=== PATIENT | female | born 1935 | race Caucasian/White ===

== ENCOUNTER → 2016-10-12 | Outpatient (CLI) | payer MEDICARE, OTHER ==
[~2016-10-12] VITALS: Ht 154.9 cm; Wt 66.0 kg
[~2016-10-12] MED LIST: ACAI PO; ACTONEL150 MG PO; ASPIRIN E.C. 8181 MG PO; B-12 100 MCG PO; CITRACAL + D 311 TAB PO; CORAL CALCIUM1 POW; CRANBERRY1 CAP PO; EPA FISH OIL1000 MG PO; ESTRACE0.1 MG/GM VG; LORAZEPAM0.5 MG PO; MANGOSTEEN PO; MAREPA1200 MG PO; MAXZIDE 25 MG-31 TAB PO; MULTIPLE VITAMI1 CAP PO; NORVASC5 MG PO; OCEAN NASAL SPR45 ML NS; OXYGEN; OXYGEN NS; PAXIL CR 12.512.5 MG PO; PERCOCET 325 MG1 TA2 PO; PRENATAL1 TA1 PO; SYNTHROID0.025 MG PO; THEO-DUR 1100 MG/TAB PO; THEO-DUR 3300 MG/TAB PO; TYLENOL 500MG500 MG PO; VENTOLIN0.09 MG IH; VITAMIN B-12100 MCG SL; VITAMIN D32000 I1 SL; VITAMIN D5000 IU PO; [UNRECOGNIZED DRUG - CODE] PO; [UNRECOGNIZED DRUG - OTHER] PO
[2016-10-12 09:34] VITALS: BP 148/80; PULSE 72
[2016-10-12 09:56] VITALS: BP 148/80; PULSE 72
== END ==
LOC: LIGHT 09:30
DX: I10 Essential (primary) hypertension (principal); R73.01 Impaired fasting glucose; E66.3 Overweight; Z68.27 Body mass index [BMI] 27.0-27.9, adult; E03.8 Other specified hypothyroidism

== ENCOUNTER → 2016-12-21 | Outpatient (CLI) | payer MEDICARE, OTHER ==
[~2016-12-21] VITALS: Ht 154.9 cm; Wt 64.9 kg
[2016-12-21 09:12] VITALS: BP 140/76; PULSE 88
== END ==
LOC: LIGHT 09:10
DX: I10 Essential (primary) hypertension (principal); R73.01 Impaired fasting glucose; E66.3 Overweight; Z68.27 Body mass index [BMI] 27.0-27.9, adult; E03.8 Other specified hypothyroidism; Z90.49 Acquired absence of other specified parts of digestive tract; Z85.820 Personal history of malignant melanoma of skin; Z90.710 Acquired absence of both cervix and uterus

== ENCOUNTER → 2017-02-22 | Outpatient (CLI) | payer MEDICARE, OTHER ==
[~2017-02-22] VITALS: Ht 154.9 cm; Wt 63.7 kg
[2017-02-22 09:38] VITALS: BP 130/60; PULSE 80
== END ==
LOC: LIGHT 11:00
DX: I10 Essential (primary) hypertension (principal); R73.01 Impaired fasting glucose; E66.3 Overweight; Z68.26 Body mass index [BMI] 26.0-26.9, adult; Z71.3 Dietary counseling and surveillance; E03.9 Hypothyroidism, unspecified

== ENCOUNTER 2017-05-03 10:54 | Outpatient (CLI) | payer MEDICARE, OTHER ==
[~2017-05-03] VITALS: Ht 154.9 cm; Wt 61.3 kg
[2017-05-03 11:12] VITALS: BP 134/84; PULSE 103; TEMP 97.9
== END 2017-05-03 11:53 | disposition home or self-care (01) ==
LOC: EUO 10:54
DX: M81.0 Age-related osteoporosis without current pathological fracture (principal); Z79.899 Other long term (current) drug therapy
CPT/HCPCS: J3489

== ENCOUNTER → 2017-06-14 | Outpatient (CLI) | payer MEDICARE, OTHER ==
[~2017-06-14] VITALS: Ht 155.1 cm; Wt 61.7 kg
[2017-06-14 09:13] VITALS: BP 130/70; PULSE 68
== END ==
LOC: LIGHT 09:09
DX: I10 Essential (primary) hypertension (principal); R73.01 Impaired fasting glucose; E66.3 Overweight; Z68.25 Body mass index [BMI] 25.0-25.9, adult; Z71.3 Dietary counseling and surveillance; E03.9 Hypothyroidism, unspecified

== ENCOUNTER → 2017-07-12 | Outpatient (CLI) | payer MEDICARE, OTHER | LOC: MC.RAD 13:09 | DX: Z12.31 Encounter for screening mammogram for malignant neoplasm of breast (principal) ==

== ENCOUNTER → 2017-08-02 | Outpatient (CLI) | payer MEDICARE, OTHER ==
[~2017-08-02] VITALS: Ht 155.1 cm; Wt 61.0 kg
[2017-08-02 09:33] VITALS: BP 140/70; PULSE 76
== END ==
LOC: LIGHT 09:08
DX: I10 Essential (primary) hypertension (principal); R73.01 Impaired fasting glucose; E66.3 Overweight; Z68.25 Body mass index [BMI] 25.0-25.9, adult; Z71.3 Dietary counseling and surveillance; E03.9 Hypothyroidism, unspecified

== ENCOUNTER → 2017-10-25 | Outpatient (CLI) | payer MEDICARE, OTHER ==
[~2017-10-25] VITALS: Ht 155.1 cm; Wt 60.6 kg
[~2017-10-25] MED LIST changes: +FISH OIL 1000MG1 CAP PO
[2017-10-25 14:23] VITALS: BP 140/76; PULSE 80
== END ==
LOC: LIGHT 11:30
DX: I10 Essential (primary) hypertension (principal); R73.01 Impaired fasting glucose; E66.3 Overweight; Z68.25 Body mass index [BMI] 25.0-25.9, adult; Z71.3 Dietary counseling and surveillance; E03.9 Hypothyroidism, unspecified
CPT/HCPCS: G0463

== ENCOUNTER → 2017-12-27 | Outpatient (CLI) | payer MEDICARE, OTHER ==
[~2017-12-27] VITALS: Ht 154.9 cm; Wt 61.5 kg
[2017-12-27 09:41] VITALS: BP 124/60; PULSE 88
== END ==
LOC: LIGHT 09:35
DX: I10 Essential (primary) hypertension (principal); R73.01 Impaired fasting glucose; E66.3 Overweight; Z68.25 Body mass index [BMI] 25.0-25.9, adult; Z71.3 Dietary counseling and surveillance; E03.9 Hypothyroidism, unspecified
CPT/HCPCS: G0463

== ENCOUNTER → 2018-01-22 | Outpatient (CLI) | payer MEDICARE ==
[~2018-01-22] VITALS: Ht 154.9 cm; Wt 65.6 kg
[~2018-01-22] MED LIST changes: +CRANBERRY500 M3 PO; +DULCOLAX TAB5 MG PO; +PRILOSEC 20MG20 MG PO; +TYLENOL 8 HR PO
[2018-01-22 09:47] VITALS: BP 157/85; PULSE 97
[2018-01-22 11:25] VITALS: BP 145/78; PULSE 87
[2018-01-22 12:07] LABS: GLUCOSE,PLEURAL FLUID 90 mg/dL; TOTAL PROTEIN,PLEURAL FLUID 4.4 gm/dL
[2018-01-22 13:41] LABS: PLEURAL FLUID RBC 2159000 /mm3 (0-0); PLEURAL FLUID WBC 3242 /mm3
[2018-01-22 13:53] LABS: PLEURAL FLUID APPEARANCE BLOODY; PLEURAL FLUID COLOR RED
== END ==
LOC: COL.RAD 09:18
PROVIDERS: Physician Assistant
DX: J90 Pleural effusion, not elsewhere classified (principal); Z90.49 Acquired absence of other specified parts of digestive tract; Z90.710 Acquired absence of both cervix and uterus; Z98.890 Other specified postprocedural states

== ENCOUNTER → 2018-02-21 | Outpatient (CLI) | payer MEDICARE ==
[~2018-02-21] VITALS: Ht 154.9 cm; Wt 60.6 kg
[~2018-02-21] MED LIST changes: +LEVAQUIN 750MG750 M1 PO
[2018-02-21 10:22] VITALS: BP 140/60; PULSE 80
== END ==
LOC: LIGHT 10:13
DX: I10 Essential (primary) hypertension (principal); R73.01 Impaired fasting glucose; E66.3 Overweight; Z68.25 Body mass index [BMI] 25.0-25.9, adult; Z71.3 Dietary counseling and surveillance; E03.9 Hypothyroidism, unspecified
CPT/HCPCS: G0463

== ENCOUNTER → 2018-04-11 | Outpatient (CLI) | payer MEDICARE ==
[~2018-04-11] VITALS: Ht 154.9 cm; Wt 60.6 kg
[~2018-04-11] MED LIST changes: +COLACE 100100 MG/CAP PO; +METAMUCIL3.4 GM/DOS PO
[2018-04-11 10:31] VITALS: BP 120/64; PULSE 80
== END ==
LOC: LIGHT 10:14
DX: I10 Essential (primary) hypertension (principal); R73.01 Impaired fasting glucose; E66.3 Overweight; Z68.25 Body mass index [BMI] 25.0-25.9, adult; Z71.3 Dietary counseling and surveillance; E03.9 Hypothyroidism, unspecified
CPT/HCPCS: G0463

== ENCOUNTER 2018-05-22 10:43 | Outpatient (CLI) | payer MEDICARE ==
[2018-05-22 11:13] VITALS: BP 142/68; PULSE 78; TEMP 98.6
== END 2018-05-22 12:30 | disposition home or self-care (01) ==
LOC: EUO 10:43
DX: M81.0 Age-related osteoporosis without current pathological fracture (principal)
CPT/HCPCS: J3489

== ENCOUNTER → 2018-06-27 | Outpatient (CLI) | payer MEDICARE ==
[~2018-06-27] VITALS: Ht 155.1 cm; Wt 61.7 kg
[2018-06-27 10:27] VITALS: BP 144/66; PULSE 88
== END ==
LOC: LIGHT 10:14
DX: I10 Essential (primary) hypertension (principal); R73.01 Impaired fasting glucose; E03.9 Hypothyroidism, unspecified; E66.3 Overweight; Z68.25 Body mass index [BMI] 25.0-25.9, adult; Z71.3 Dietary counseling and surveillance
CPT/HCPCS: G0463

== ENCOUNTER → 2018-07-29 | Outpatient (CLI) | payer MEDICARE | LOC: MC.RAD 13:57 | DX: Z12.31 Encounter for screening mammogram for malignant neoplasm of breast (principal) ==

== ENCOUNTER → 2018-11-14 | Outpatient (CLI) | payer MEDICARE ==
[~2018-11-14] VITALS: Ht 154.9 cm; Wt 62.4 kg
[2018-11-14 11:17] VITALS: BP 150/80; PULSE 80
== END ==
LOC: LIGHT 10:53
DX: I10 Essential (primary) hypertension (principal); R73.01 Impaired fasting glucose; E03.9 Hypothyroidism, unspecified; E66.3 Overweight; Z68.26 Body mass index [BMI] 26.0-26.9, adult; Z71.3 Dietary counseling and surveillance
CPT/HCPCS: G0463

== ENCOUNTER → 2018-12-26 | Outpatient (CLI) | payer MEDICARE ==
[~2018-12-26] VITALS: Ht 154.9 cm; Wt 61.9 kg
[2018-12-26 11:26] VITALS: BP 126/70; PULSE 72
== END ==
LOC: LIGHT 10:27
DX: I10 Essential (primary) hypertension (principal); R73.01 Impaired fasting glucose; E03.9 Hypothyroidism, unspecified; E66.9 Obesity, unspecified; Z68.25 Body mass index [BMI] 25.0-25.9, adult; Z71.3 Dietary counseling and surveillance
CPT/HCPCS: G0463

== ENCOUNTER → 2019-03-27 | Outpatient (CLI) | payer MEDICARE ==
[~2019-03-27] VITALS: Ht 154.9 cm; Wt 60.6 kg
[2019-03-27 11:16] VITALS: BP 150/62; PULSE 60
== END ==
LOC: LIGHT 10:21
DX: I10 Essential (primary) hypertension (principal); R73.01 Impaired fasting glucose; E03.9 Hypothyroidism, unspecified; E66.3 Overweight; Z68.25 Body mass index [BMI] 25.0-25.9, adult; Z71.3 Dietary counseling and surveillance
CPT/HCPCS: G0463

== ENCOUNTER 2019-05-26 11:06 | Outpatient (CLI) | payer MEDICARE ==
[~2019-05-26] VITALS: Ht 154.9 cm; Wt 60.4 kg
[2019-05-26 11:45] VITALS: BP 118/65; PULSE 77; TEMP 97.5
[2019-05-26] MEDS ORDERED: SYNTHROID 0.0.025 MG PO (11:49)
[2019-05-26] MEDS ORDERED: NORVASC 5MG5 MG/TAB PO (11:49)
[2019-05-26] MEDS ORDERED: PAXIL CR 12.512.5 MG PO (11:54)
[2019-05-26] MEDS ORDERED: HCTZ 25MG TAB25 MG PO (11:55)
[2019-05-26] MEDS ORDERED: ATIVAN 0.50.5 MG/TAB PO (11:56)
[2019-05-26] MEDS ORDERED: THEO-24100 MG PO (11:57)
[2019-05-26] MEDS ORDERED: OCEAN NASAL SPR45 ML NS (11:57)
[2019-05-26] MEDS ORDERED: VITAMIN B COMPL1 SGL PO (11:59)
[2019-05-26] MEDS ORDERED: CRANBERRY 100 M1 SGL PO (12:00)
[2019-05-26] MEDS ORDERED: VITAMIND3 5000 PO (12:00)
[2019-05-26] MEDS ORDERED: ASPIRIN E.C. 8181 MG PO (12:01)
[2019-05-26] MEDS ORDERED: [UNRECOGNIZED DRUG - OTHER] PO (12:01)
[2019-05-26] MEDS ORDERED: CALCIUM CITRAT950 MG PO (12:02)
[2019-05-26] MEDS ORDERED: MASON NATURAL1200 MG PO (12:03)
[2019-05-26] MEDS ORDERED: COLACE 100100 MG/CAP PO (12:04)
--- NOTE | 2019-05-26 12:19 | NUR ---
Pt sondra reclast well. Pt discharged per w/c with friend.
== END 2019-05-26 12:34 | disposition home or self-care (01) ==
LOC: EUO 11:06
DX: M81.0 Age-related osteoporosis without current pathological fracture (principal)
CPT/HCPCS: J3489

== ENCOUNTER → 2019-07-17 | Outpatient (CLI) | payer MEDICARE ==
[~2019-07-17] VITALS: Ht 155.1 cm; Wt 60.3 kg
[~2019-07-17] MED LIST changes: +ATIVAN 0.50.5 MG/TAB PO; +CALCIUM CITRAT950 MG PO; +CRANBERRY 100 M1 SGL PO; +HCTZ 25MG TAB25 MG PO; +MASON NATURAL1200 MG PO; +NORVASC 5MG5 MG/TAB PO; +SYNTHROID 0.0.025 MG PO; +THEO-24100 MG PO; +VITAMIN B COMPL1 SGL PO; +VITAMIND3 5000 PO; +[UNRECOGNIZED DRUG - OTHER] PO
[2019-07-17 11:01] VITALS: BP 144/70; PULSE 84
== END ==
LOC: LIGHT 10:54
DX: I10 Essential (primary) hypertension (principal); R73.01 Impaired fasting glucose; E03.9 Hypothyroidism, unspecified; E66.3 Overweight; Z68.25 Body mass index [BMI] 25.0-25.9, adult; Z71.3 Dietary counseling and surveillance
CPT/HCPCS: G0463

== ENCOUNTER → 2019-08-12 | Outpatient (CLI) | payer MEDICARE | LOC: MC.RAD 14:34 | DX: Z12.31 Encounter for screening mammogram for malignant neoplasm of breast (principal) ==

== ENCOUNTER 2020-06-01 13:50 | Outpatient (CLI) | payer MEDICARE ==
[~2020-06-01] VITALS: Ht 154.9 cm; Wt 58.1 kg
[2020-06-01] MEDS ORDERED: VITAMIN C500 MG PO (14:27)
[2020-06-01 14:51] VITALS: BP 158/86; PULSE 72; TEMP 98.2
--- NOTE | 2020-06-01 14:53 | NUR ---
IV DC'd with catheter intact, bleeding controlled at site. Pt ambulates out from dept with steady gait. Tolerated reclast infusion without issue.
== END 2020-06-01 15:00 | disposition home or self-care (01) ==
LOC: EUO 13:50
DX: M81.0 Age-related osteoporosis without current pathological fracture (principal)
CPT/HCPCS: J3489

== ENCOUNTER → 2020-11-03 | Outpatient (CLI) | payer MEDICARE ==
[~2020-11-03] MED LIST changes: +VITAMIN C500 MG PO
== END ==
LOC: MC.RAD 08-13 13:30
DX: Z12.31 Encounter for screening mammogram for malignant neoplasm of breast (principal)

== ENCOUNTER 2021-06-29 15:53 | Outpatient (CLI) | payer MEDICARE ==
[~2021-06-29] VITALS: Ht 154.9 cm; Wt 64.2 kg
[2021-06-29 16:30] VITALS: BP 156/97; PULSE 70; TEMP 98
== END 2021-06-29 17:04 | disposition home or self-care (01) ==
LOC: EUO 15:53
DX: M81.0 Age-related osteoporosis without current pathological fracture (principal)
CPT/HCPCS: J3489

== ENCOUNTER → 2023-10-04 | Outpatient (CLI) | payer MEDICARE ==
[2006-09-11 05:45] VITALS: BP 144/87; PULSE 78; TEMP 98.1
== END ==
LOC: MC.RAD 13:07
DX: Z12.31 Encounter for screening mammogram for malignant neoplasm of breast (principal)

== ENCOUNTER 2024-01-22 13:48 | Outpatient (CLI) | payer MEDICARE ==
[~2024-01-22] VITALS: Ht 154.9 cm; Wt 58.2 kg
[~2024-01-22 13:48] MED LIST changes: -CRANBERRY 100 M1 SGL PO; +CRANBERRY 4001 EACH PO
[2024-01-22] MEDS ORDERED: Denosumab 60 MG/ML SYRINGE SQ ONE (14:15)
[2024-01-22 14:17] VITALS: BP 139/81; PULSE 80; TEMP 98.8
[2024-01-22] MEDS ORDERED: PROLIA60 MG/ML SQ (14:17)
[2024-01-22] MEDS ORDERED: KRILL OIL 1,001 EAC1 PO (14:17)
--- NOTE | 2024-01-22 14:50 | NUR ---
Pt tolerated injection without issue. She remained in dept for monitoring following initial dose. She is assisted out to entrance to meet friend by wheelchair with belongings. Pt free of complaints at discharge.
== END 2024-01-22 14:51 | disposition home or self-care (01) ==
LOC: EUO 13:48
DX: M81.0 Age-related osteoporosis without current pathological fracture (principal)
CPT/HCPCS: J0897

== ENCOUNTER 2024-07-31 12:46 | Outpatient (CLI) | payer MEDICARE, OTHER ==
[~2024-07-31 12:46] MED LIST changes: +KRILL OIL 1,001 EAC1 PO; +PROLIA60 MG/ML SQ
[2024-07-31] MEDS ORDERED: Denosumab 60 MG/ML SYRINGE SQ ONE (13:00)
[2024-07-31 13:48] VITALS: BP 137/78; PULSE 75; TEMP 98
[2024-07-31] MEDS ORDERED: MAXZIDE-25MG TA1 TAB PO (14:20)
[2024-07-31] MEDS ORDERED: LUTEIN20 M1 PO (14:23)
[2024-07-31] MEDS ORDERED: PROBIOTIC BLEN1 EACH PO (14:24)
[2024-07-31] MEDS ORDERED: ELIQUIS 5MG PO (14:27)
== END 2024-07-31 15:03 ==
LOC: EUO 12:46
DX: M81.0 Age-related osteoporosis without current pathological fracture (principal)
CPT/HCPCS: J0897